=== PATIENT | male | born 1965 | race Caucasian/White ===

== ENCOUNTER → 2020-07-28 | Outpatient (CLI) | payer BC | LOC: PT 14:00 | DX: M17.11 Unilateral primary osteoarthritis, right knee (principal) ==

== ENCOUNTER 2020-09-15 10:00 | Outpatient (RCR) | payer BC | END 2020-11-06 | disposition home or self-care (01) | LOC: PT | DX: M17.11 Unilateral primary osteoarthritis, right knee (principal) ==

== ENCOUNTER 2022-06-07 13:44 | Outpatient (RCR) | payer OTHER | END 2022-06-29 | disposition home or self-care (01) | LOC: PT | DX: Z96.611 Presence of right artificial shoulder joint (principal) ==

== ENCOUNTER 2022-07-28 08:01 | Outpatient (RCR) | payer OTHER | END 2022-08-27 | disposition home or self-care (01) | LOC: PT | DX: Z96.611 Presence of right artificial shoulder joint (principal); Z98.890 Other specified postprocedural states ==